=== PATIENT | female | born 1985 | race Hispanic/Latino ===

== ENCOUNTER 2019-01-13 12:38 | Inpatient (IN) | payer OTHER ==
[~2019-01-13] VITALS: Ht 154.9 cm; Wt 85.0 kg
[~2019-01-13 12:38] MED LIST: ACETAMINOPHEN325 M1 PO; HYDROXYZINE HCL25 MG PO; PRENATAL COMPL1 EACH PO; URSO250 MG PO
--- NOTE | 2019-01-14 12:59 | PR ---
[facility] [address] [facility] [place], [place] [address] Signed Progress Notes IP Datetime Report Generated by CPN: 01/14/2019 12:59 PROGRESS NOTES: [id number] Impression: Normal progression of labor Procedures: Artificial ROM; Sterile Vag Exam Plan: Continue present management Informed Consent Obtain: Vaginal Delivery; Induction of Labor; Risks, Benefits and Alternatives Discussed VITAL SIGNS: [id number] Vital Signs: Reviewed; Within Normal Limits VS Notable Details: intermittent mild HTN EXAM: [id number] Dilatation: 3.0 Effacement: 75 Station: -2 Uterine Contractions: q 1 to 3 min, mild MEMBRANES: [id number] Membrane Status: Intact ROM Note: AROM with moderate, clear fluid seen. Comments: Progressing well. Will continue. Fetus A: [id number] FHR Baseline: 150 Variability: Minimal - Undetectable to <5bpm Accelerations: 15X15 Decelerations: None FHR Category: Category II Presentation: Vertex Comments on Fetus A: No evidence of metabolic acidosis Fetus B: [id number] Signing Physician: Zuleyma Soria MD Copies: ~ *Electronically Signed* 01/14/19 1929 ZULEYMA SORIA MD PATIENT NAME: JOSE BEASLEY PROGRESS NOTE DATE OF : 89 PHYSICIAN: ZULEYMA SORIA MD RPT #: [id number] REPORT IS CONFIDENTIAL AND NOT TO BE RELEASED WITHOUT AUTHORIZATION
--- NOTE | 2019-01-15 08:42 | PR ---
[facility] [address] [facility] [place], [place] [address] Signed PP Progress Notes Datetime Report Generated by CPN: 01/15/2019 08:42 SUBJECTIVE: [id number] Pain: Within normal limits Nausea/Vomiting: Denies Vital Signs: [id number] Vital Signs: Reviewed; Within Normal Limits EXAM: [id number] Cardiovascular: Not Done Respiratory: Not Done Abdomen/Uterus: Abnormal Lochia: Normal Vulva/Perineum: Not Done Breasts: Not Done CVA Tenderness: Not Done Extremities: Normal Incision: Not Applicable Progress: Abnormal Exam Comments: Fundus firm, NT @ U. H/H 9.2/29.4, WBC 8.1, plat 240k IMPRESSION/PLAN/PROCEDURES: [id number] Impression: Normal progression Plan: Continue present management Progress Notes: Doing well. Will work on breast feeding today. Signing Physician: Zuleyma Soria MD Copies: ~ *Electronically Signed* 01/15/19 0842 ZULEYMA SORIA MD PATIENT NAME: JOSE BEASLEY PROGRESS NOTE DATE OF : 89 PHYSICIAN: ZULEYMA SORIA MD RPT #: [id number] REPORT IS CONFIDENTIAL AND NOT TO BE RELEASED WITHOUT AUTHORIZATION
--- NOTE | 2019-01-16 09:20 | PR ---
[facility] [address] [facility] [place], [place] [address] Signed PP Progress Notes Datetime Report Generated by CPSera: 01/16/2019 09:20 SUBJECTIVE: [id number] Pain: Within normal limits Nausea/Vomiting: Denies Vital Signs: [id number] Vital Signs: Reviewed; Within Normal Limits EXAM: [id number] Cardiovascular: Not Done Respiratory: Not Done Abdomen/Uterus: Abnormal Lochia: Normal Vulva/Perineum: Not Done Breasts: Not Done CVA Tenderness: Not Done Extremities: Normal Incision: Not Applicable Progress: Abnormal Exam Comments: Fundus firm, NT @ U. IMPRESSION/PLAN/PROCEDURES: [id number] Impression: Normal progression Other Impression: itching resolved Plan: Discharge Procedures: None Progress Notes: Doing well. She is ready for D/C. Signing Physician: Zuleyma Soria MD Copies: ~ *Electronically Signed* 01/16/19919 ZULEYMA SORIA MD PATIENT NAME: JOSE BEASLEY PROGRESS NOTE DATE OF : 89 PHYSICIAN: ZULEYMA SORIA MD RPT #: [id number] REPORT IS CONFIDENTIAL AND NOT TO BE RELEASED WITHOUT AUTHORIZATION
== END 2019-01-16 13:35 | disposition home or self-care (01) | DRG 805 ==
LOC: FBC 01-14 06:00 → MS 01-15 17:21 → FBC 01-15 17:22
PROVIDERS: ADMIT Obstetrics & Gynecology
PROC: 10E0XZZ Delivery of Products of Conception, External Approach (ICD-10-PCS; principal; 2019-01-14)
PROC: 0HQ9XZZ Repair Perineum Skin, External Approach (ICD-10-PCS; 2019-01-14)
PROC: 10907ZC Drainage of Amniotic Fluid, Therapeutic from Products of Conception, Via Natural or Artificial Opening (ICD-10-PCS; 2019-01-14)
PROC: 3E0P7VZ Introduction of Hormone into Female Reproductive, Via Natural or Artificial Opening (ICD-10-PCS; 2019-01-14)
PROC: 00HU33Z Insertion of Infusion Device into Spinal Canal, Percutaneous Approach (ICD-10-PCS; 2019-01-14)
PROC: 3E0R3BZ Introduction of Anesthetic Agent into Spinal Canal, Percutaneous Approach (ICD-10-PCS; 2019-01-14)
DX: O26.62 Liver and biliary tract disorders in childbirth (principal); K83.1 Obstruction of bile duct; Z37.0 Single live birth; Z3A.37 37 weeks gestation of pregnancy; O70.0 First degree perineal laceration during delivery; O69.81X0 Labor and delivery complicated by cord around neck, without compression, not applicable or unspecified; O28.5 Abnormal chromosomal and genetic finding on antenatal screening of mother; O99.214 Obesity complicating childbirth; Z86.19 Personal history of other infectious and parasitic diseases; Z79.82 Long term (current) use of aspirin
CPT/HCPCS: 01960; 36415; 82565; 84450; 84520; 84550; 85025; 85027; J2590; J7060; J7120

== ENCOUNTER 2019-12-16 04:58 | Inpatient (IN) | payer OTHER ==
[~2019-12-16] VITALS: Ht 154.9 cm; Wt 86.0 kg
--- NOTE | 2019-12-16 11:37 | PR ---
[facility] [address] [facility] [place] [place] [address] Signed Progress Notes IP Datetime Report Generated by CPN: 12/16/2019 11:37 PROGRESS NOTES: [id number] Impression: Normal progression of labor Procedures: Artificial ROM Plan: Continue present management Informed Consent Obtain: Vaginal Delivery; Risks, Benefits and Alternatives Discussed VITAL SIGNS: [id number] Vital Signs: Reviewed; Within Normal Limits EXAM: [id number] Dilatation: 9.5 Effacement: 95 Station: -2 Uterine Contractions: not picking up well MEMBRANES: [id number] Membrane Status: Ruptured Amniotic Fluid Color: Clear ROM Note: AROM of forebag with small amount clear fluid Comments: Progressing slowly. On pit now and contractions are increasing. Hopefully, AROM of forebag will be helpful. Fetus A: [id number] FHR Baseline: 130 Variability: Moderate 6-25bpm Accelerations: 15X15 Decelerations: None FHR Category: Category I Presentation: Vertex Comments on Fetus A: No evidence of metabolic acidosis Fetus B: [id number] Signing Physician: Zuleyma Soria MD Copies: ~ *Electronically Signed* 12/16/19 1137 ZULEYMA SORIA MD PATIENT NAME: JOSE BEASLEY PROGRESS NOTE DATE OF : 89 PHYSICIAN: ZULEYMA SORIA MD RPT #: [id number] REPORT IS CONFIDENTIAL AND NOT TO BE RELEASED WITHOUT AUTHORIZATION
--- NOTE | 2019-12-17 07:55 | PR ---
[facility] [address] [facility] [place], [place] [address] Signed PP Progress Notes Datetime Report Generated by ALYSSA: 12/17/2019 07:55 SUBJECTIVE: [id number] Pain: Within normal limits Vital Signs: [id number] Vital Signs: Reviewed; Within Normal Limits EXAM: [id number] Cardiovascular: Not Done Respiratory: Not Done Abdomen/Uterus: Abnormal Lochia: Normal Vulva/Perineum: Not Done Breasts: Not Done CVA Tenderness: Not Done Extremities: Normal Incision: Not Applicable Progress: Abnormal Exam Comments: Fundus firm, NT @ U-1. H/H 9.7/30, WBC 7.7, plat 230k IMPRESSION/PLAN/PROCEDURES: [id number] Impression: Normal progression Plan: Discharge Procedures: None Progress Notes: Doing well. She does desire D/C. Signing Physician: Zuleyma Soria MD Copies: ~ *Electronically Signed* 12/17/19 0755 ZULEYMA SORIA MD PATIENT NAME: JURGEN WILLSJOSE GROVES PROGRESS NOTE DATE OF : 89 PHYSICIAN: ZULEYMA SORIA MD RPT #: [id number] REPORT IS CONFIDENTIAL AND NOT TO BE RELEASED WITHOUT AUTHORIZATION
== END 2019-12-17 14:47 | disposition home or self-care (01) | DRG 807 ==
LOC: FBCO 04:58 → FBC 05:10
PROVIDERS: ADMIT Obstetrics & Gynecology
PROC: 10E0XZZ Delivery of Products of Conception, External Approach (ICD-10-PCS; principal; 2019-12-16)
PROC: 10907ZC Drainage of Amniotic Fluid, Therapeutic from Products of Conception, Via Natural or Artificial Opening (ICD-10-PCS; 2019-12-16)
PROC: 00HU33Z Insertion of Infusion Device into Spinal Canal, Percutaneous Approach (ICD-10-PCS; 2019-12-16)
PROC: 3E0R3BZ Introduction of Anesthetic Agent into Spinal Canal, Percutaneous Approach (ICD-10-PCS; 2019-12-16)
DX: O99.214 Obesity complicating childbirth (principal); Z37.0 Single live birth; E66.9 Obesity, unspecified; Z3A.38 38 weeks gestation of pregnancy; Z86.19 Personal history of other infectious and parasitic diseases
CPT/HCPCS: 01960; 36415; 85027; A9270; J2590; J7121

== ENCOUNTER 2022-06-20 06:02 | Day surgery (SDC) | payer OTHER ==
[~2022-06-20] VITALS: Ht 154.9 cm; Wt 85.0 kg
--- NOTE | ~2022-06-20 | OR ---
[facility] [address] [place], [place] [address] Draft DATE OF OPERATION: 06/20/2022 SURGEON: Zuleyma Soria MD PREOPERATIVE DIAGNOSES: Menometrorrhagia, endometrial lesion, intrauterine device in situ. POSTOPERATIVE DIAGNOSES: Menometrorrhagia, endometrial lesion, intrauterine device in situ with probable submucosal fibroid or polyp. No intrauterine device present. PROCEDURE: Hysteroscopy, resection of lesion. ANESTHESIA: MAC. ESTIMATED BLOOD LOSS: Minimal. DRAINS: None. INDICATIONS AND FINDINGS: The patient is a 36-year-old female who has been having abnormal bleeding with her Mirena. When she was seen for her annual in April, the IUD strings could not be seen. An ultrasound was done which confirmed the IUD was present and appropriately located, but there was also possible fibroid or polyp within the uterine canal. Because of this, she was scheduled for hysteroscopy. She has had several very heavy bleeding episode since the initial visit. At the time of surgery, her uterus was normal size. It sounded to 9 cm. There was no IUD within the cavity. There was a polyp or fibroid in the left fundus area. PROCEDURE IN DETAIL: The patient was prepped and draped in the dorsal lithotomy position. A weighted speculum was placed. The anterior lip of the cervix was visualized and grasped with a single-tooth tenaculum. The cavity sounded to 9 cm. The endocervical canal was then easily dilated to a #8 dilator. The MyoSure device was placed and there was no evidence of any IUD within the cavity. The lesion at the upper left fundus was visualized and it appeared to be fibroid. Because of this, the MyoSure Reach was used and this lesion was PATIENT NAME: JOSE BEASLEY OPERATIVE REPORT DATE OF : 89 REPORT #: [id number] PHYSICIAN: ZULEYMA SORIA MD PCP: NO PRIMARY CARE PHYSICIAN REPORT IS CONFIDENTIAL AND NOT TO BE RELEASED WITHOUT AUTHORIZATION [facility] [address] [place], [place] [address] Draft resected without any difficulty. A few small polyps were also resected in the mid fundus. The cavity appeared clean and at this point, the procedure was terminated. The instruments removed. The tenaculum was removed. There was no evidence of any ongoing bleeding from the cervix. Weighted speculum was removed and the patient was taken to the recovery room in good condition. All sponge and needle counts were correct. MD FAITH Kaur/MODL /[id number] Copies: ~ PATIENT NAME: JOSE BEASLEY OPERATIVE REPORT DATE OF : 89 REPORT #: [id number] PHYSICIAN: ZULEYMA SORIA MD PCP: NO PRIMARY CARE PHYSICIAN REPORT IS CONFIDENTIAL AND NOT TO BE RELEASED WITHOUT AUTHORIZATION
[~2022-06-20 06:02] MED LIST changes: +VITAMIN D21250 MCG PO
--- NOTE | 2022-06-22 13:11 | PATH ---
[facility] [address] [place], [place] [address] Signed SPECIMEN(S): A ENDOMETRIAL POLYP SPECIMEN SOURCE: A. ENDOMETRIAL POLYP CLINICAL HISTORY: Endometrial lesion; menometrorrhagia; endometrial polyp FINAL PATHOLOGIC DIAGNOSIS: Endometrial polyp, biopsy: - Polypoid fragments of proliferative endometrium and myometrium. - Negative for endometrial hyperplasia or atypia. - See comment. COMMENT: The history of "endometrial polyp" is noted. Some of the endometrial fragments have slightly polypoid features. However, the most prominent component is the myometrial tissue. This raises the consideration of a leiomyoma. However, definitive diagnosis of a leiomyoma on these morcellated fragments is limited. Atypical features are not identified. There is no evidence of endometrial hyperplasia or atypia. Clinical correlation is requested. JVR:cml:C2NR MICROSCOPIC EXAMINATION: Histologic sections of all submitted blocks are examined by light microscopy. These findings, together with the gross examination, support the pathologic diagnosis. GROSS DESCRIPTION: The specimen, labeled "SP, endometrial polyp," is received in formalin and consists of irregular shaped pink-harris, membranous tissue fragment that aggregate measure 3.0 x 3.0 x 0.4 cm. Specimen is entirely submitted in cassettes (A1-A2). JS (under the direct supervision of a pathologist) The Gross Description was prepared using a voice recognition system. The report was reviewed for accuracy; however, sound-alike word errors, addition and/or deletions may occur. If there is any question about this report, please contact Client Services. PERFORMING LABORATORY: PATIENT NAME: JOSE BEASLEY PATHOLOGY DATE OF : 89 REPORT #: [id number] PHYSICIAN: MCKINLEY TIPTON PCP: NO PRIMARY CARE PHYSICIAN REPORT IS CONFIDENTIAL AND NOT TO BE RELEASED WITHOUT AUTHORIZATION [facility] [address] [place], [place] [address] Signed The technical component was performed by [facility], [address] [place] [id number] (CLIA# [id number]). Professional interpretation was performed by [facility] - [address] [address] (CLIA#: [id number]). Diagnostician: Sage Huertas MD Pathologist Electronically Signed 06/22/2022 Copies: ~ PATIENT NAME: JOSE BEASLEY PATHOLOGY DATE OF : 89 REPORT #: [id number] PHYSICIAN: MCKINLEY TIPTON PCP: NO PRIMARY CARE PHYSICIAN REPORT IS CONFIDENTIAL AND NOT TO BE RELEASED WITHOUT AUTHORIZATION
== END 2022-06-20 08:27 | disposition home or self-care (01) ==
LOC: DS 06:02
PROVIDERS: ATTEND Obstetrics & Gynecology
PROC: 0UB98ZX Excision of Uterus, Via Natural or Artificial Opening Endoscopic, Diagnostic (ICD-10-PCS; principal; 2022-06-20 07:30)
DX: N84.0 Polyp of corpus uteri (principal)
CPT/HCPCS: 00952; J0131; J1100; J1885; J2250; J2405; J2704; J2765; J3010; J7121